=== PATIENT | female | born 1940 | race Caucasian/White ===

== ENCOUNTER → 2017-10-16 | Outpatient (CLI) | payer MEDICARE, OTHER ==
[2014-10-28 07:20] VITALS: BP 168/82
[~2017-10-16] MED LIST: ALBU18HF IH; AMLO5TAB2 PO; ASPI-482 PO; ATOR40TA59 PO; CARV12.52 PO; CHOL100013 PO; ESTR2TAB PO; EZET10TA18 PO; LEVO100T5 PO; METF10002 PO; OMEG1CAP2 PO; OMEP20CA5 PO; RAMI10CA PO; TRIA1TAB PO
--- NOTE | 2017-10-16 11:52 | RAD ---
DATE: 10/16/2017 EXAM: MAMMO DINA SCREENING BILATERAL HISTORY: Routine screening COMPARISON: 10/15/2016 This study was interpreted with the benefit of Computerized Aided Detection (CAD). The breast parenchyma is primarily fatty replaced. Breast parenchyma level density A. FINDINGS: 2-D and 3-D tomosynthesis imaging was performed in CC and MLO projections. There is an unchanged smooth nodule in the posterolateral aspect of the right breast which is probably an intramammary lymph node. There is a 4 mm nodule in the anterolateral aspect of the right breast best seen on CC dina image #14 which is also unchanged. No new or enlarging breast densities are seen. Benign type calcifications are again noted bilaterally. No suspicious microcalcifications have developed. IMPRESSION: Stable mammograms without evidence of malignancy. BI-RADS CATEGORY: 2 BENIGN FINDING(S) RECOMMENDED FOLLOW-UP: 12M 12 MONTH FOLLOW-UP PQRS compliance statement: Patient information was entered into a reminder system with a target due date for the next mammogram. Mammography is a sensitive method for finding small breast cancers, but it does not detect them all and is not a substitute for careful clinical examination. A negative mammogram does not negate a clinically suspicious finding and should not result in delay in biopsying a clinically suspicious abnormality. "Our facility is accredited by the [employer] Mammography [employer]."
== END | disposition home or self-care (01) ==
LOC: MAMMO 10:33
PROVIDERS: ATTEND Specialist
DX: Z12.31 Encounter for screening mammogram for malignant neoplasm of breast (principal); Z87.891 Personal history of nicotine dependence
CPT/HCPCS: 77063; G0202; 77067

== ENCOUNTER 2017-11-24 19:43 | Emergency (ER) | payer MEDICARE, OTHER ==
[~2017-11-24] VITALS: Ht 165.1 cm; Wt 88.5 kg
[2017-11-24] MEDS ORDERED: IV NORMAL SALINE 1,000ML 1,000 ML IV SCH (20:09)
[2017-11-24] MEDS ORDERED: ONDANSETRON PF 4 MG/2 ML VIAL. IV ONE (20:30)
[2017-11-24 20:51] LABS: BASO % 0 % (0-3); EOS # 0.1 x10^3/uL (0.0-0.7); EOS % 1 % (0-3); HEMATOCRIT 47.3 % (36.0-47.0); HEMOGLOBIN 16.1 g/dL (12.0-15.5); LYMPH # 1.2 x10^3/uL (1.0-4.8); LYMPH % 8 % (24-48); MEAN CORPUSCULAR HEMOGLOBIN 29 pg (25-35); MEAN CORPUSCULAR HGB CONC 34 g/dL (31-37); MEAN CORPUSCULAR VOLUME 85 fL (79-100); MONO # 1.1 x10^3/uL (0.0-1.1); MONO % 8 % (0-9); NEUT % 83 % (31-73); PLATELET COUNT 242 x10^3/uL (140-400); RED BLOOD COUNT 5.58 x10^6/uL (3.50-5.40); RED CELL DISTRIBUTION WIDTH 14.9 % (11.5-14.5); WHITE BLOOD COUNT 14.5 x10^3/uL (4.0-11.0)
[2017-11-24 21:04] LABS: ALBUMIN/GLOBULIN RATIO 1.1 (1.0-1.7); CALCIUM 9.1 mg/dL (8.5-10.1); CREATININE 0.9 mg/dL (0.6-1.0); TOTAL BILIRUBIN 0.7 mg/dL (0.2-1.0); TOTAL PROTEIN 7.8 g/dL (6.4-8.2)
[2017-11-24 21:05] LABS: POTASSIUM 4.2 mmol/L (3.5-5.1)
[2017-11-24 21:17] LABS: BILIRUBIN,URINE NEG (NEG); CLARITY,URINE HAZY; COLOR,URINE YELLOW; GLUCOSE,URINE NEG (NEG); NITRITE,URINE NEG (NEG); UROBILINOGEN,URINE 0.2 mg/dL (0.2 mg/dL)
[2017-11-24 21:18] LABS: AMORPHOUS SEDIMENT,UR PRESENT /HPF; BACTERIA,URINE FEW /HPF (0-FEW); HYALINE CASTS, URINE FEW /HPF; SQUAMOUS EPITHELIAL CELL,UR MOD /LPF
[2017-11-24 21:51] VITALS: BP 138/72
--- NOTE | 2017-11-24 22:01 | PHYS DOC ---
General Chief Complaint: NAUSEA/VOMITING/DIARRHEA Stated Complaint: N/V/D Time Seen by MD: 20:08 Source: patient Exam Limitations: no limitations Problems: History of Present Illness Initial Comments Patient is a 77-year-old female who comes in the ED complaining of nausea vomiting and diarrhea. Patient states that yesterday evening she developed some abdominal cramps and had several episodes of nonbloody emesis. She states that she had some nonspecific abdominal cramping last night with several episodes of nonbloody emesis, a few more nonbloody emesis earlier today at approximately 8 loose watery stools this afternoon. She's feeling weak with [place] and headache when standing denies any chest pain or shortness of breath. No focal abdominal pain complaints no travel or bad food exposure she's had some chills and sweats no measured fevers. ED vital signs are stable, on arrival Zofran normal saline bolus and screening labs initiated. Timing/Duration: 24 hours Severity: moderate Modifying Factors: worse with eating Associated Symptoms: nausea/vomiting, other Allergies: Coded Allergies: Sulfa (Sulfonamide Antibiotics) (Unverified Allergy, Intermediate, rash, 10/28/14) Past Medical History Medical History: other (COPD, diabetes, hypertension, [place]) Surgical History: angioplasty, cholecystectomy Social History Smoker: quit greater than 1 year Alcohol: none Drugs: none Review of Systems Constitutional: chills, denies diaphoresis, denies fever, malaise Respiratory: denies cough, denies shortness of breath Cardiovascular: denies chest pain, denies palpitations Gastrointestinal: see HPI Genitourinary: denies dysuria, denies frequency, denies hematuria Musculoskeletal: denies back pain, denies joint swelling, denies neck pain Psychiatric/Neurological: headache, denies numbness, denies paresthesia Physical Exam General Appearance: WD/WN, mild distress Ear, Nose, Throat: hearing grossly normal, normal ENT inspection, normal pharynx (dry membranes) Neck: non-tender, supple Respiratory: normal breath sounds, no respiratory distress Cardiovascular: normal peripheral pulses, regular rate, rhythm Gastrointestinal: soft (nondistended, generalized abdominal muscle tenderness without focality negative Mejia negative McBurney bowel sounds normal) Back: no CVA tenderness, no vertebral tenderness Skin: warm/dry (poor turgor) Orders, Labs, Meds WBCs 14.5, BUN/creatinine ratio 23, glucose 225, urinalysis with squamous epithelial contamination no leukocyte esterase or nitrites Patient reevaluated after Zofran and fluids she states she's feeling much better. She states that she's had no nausea and is very hungry she wants to go home so she can eat. She denies having had any loose stools since ED arrival. I discussed [id number] and prescription medications, oral hydration, dietary modifications, glucose monitoring, as well as signs and symptoms to monitor and urgent indications to return to the department. Her questions were answered to her satisfaction and she expressed agreement and understanding with treatment plan. She was sent home with Zofran ODT start pack. Departure Time of Disposition: 22:00 Disposition: 01 HOME, SELF-CARE Diagnosis: gastroenteritis, dehydration Condition: IMPROVED Patient Instructions: Dehydration, Adult, [id number], Viral Gastroenteritis, [id number] Additional Instructions: Please review the patient education materials given by ED staff. Clear liquids today, advance diet slowly tomorrow as tolerated. Aggressive hydration Consider [id number] probiotics or cultured yogurt. A Zofran ODT start pack was dispensed to you, take one every 6 hours as needed for nausea. Follow-up with your doctor in 2-3 days for recheck. Return to ED with new or changing symptoms. TORY BENITO DO Nov 24, 2017 22:01
[2017-11-24] MEDS ORDERED: ONDANSETRON 4MG ODT 4TABLET STARTPACK. PO ONE (22:15)
== END 2017-11-24 22:19 | disposition home or self-care (01) ==
LOC: ER 19:48
DX: K52.9 Noninfective gastroenteritis and colitis, unspecified (principal); E86.0 Dehydration; R51 Headache; E11.9 Type 2 diabetes mellitus without complications; I10 Essential (primary) hypertension; J44.9 Chronic obstructive pulmonary disease, unspecified; I25.2 Old myocardial infarction; Z90.49 Acquired absence of other specified parts of digestive tract; Z98.61 Coronary angioplasty status; Z87.891 Personal history of nicotine dependence; Z88.2 Allergy status to sulfonamides
CPT/HCPCS: 36415; 80053; 81001; 82550; 83690; 84484; 85025; 87086; 96361; 96374; 99284; J2405; Q0162; J7030

== ENCOUNTER 2018-04-30 04:49 | Emergency (ER) | payer MEDICARE, OTHER ==
[~2018-04-30] VITALS: Ht 167.6 cm; Wt 88.6 kg
[~2018-04-30 04:49] MED LIST changes: -METF10002 PO; +METF10003 PO
[2018-04-30 04:51] VITALS: BP 176/76
--- NOTE | 2018-04-30 04:57 | ED.ADGEN ---
Past History Past Medical History: Arthritis, Bronchitis, COPD, Diabetes, Hypertension, [place], Other Past Surgical History: Cholecystectomy, Other Alcohol Use: Rarely Drug Use: None Adult General Chief Complaint Chief Complaint " .. I have COPD... and I get bronchitis.. but I ve been thru. 2 courses of Z - pack but I am not better.. I have not smoke for over 10 yrs.. I just finished the last Z pack started Wed last week.." HPI HPI Patient is a 77 year old female who presents with above hx complaints and dyspnea. Pt. has had a productive cough and sore throat last week. Pt. has not been on prednisone recently, and avoid it use because of diabetes. Pt. has some chest pain just below Lt. scapular. Pain is reproduce with cough. Pt. denies travel or specific ill contacts. Pt. normally follow s with Dr. Baig and Dr. Arnold. Pt. has completed two course of Z-pack for her recent respiratory symptoms. Hx. of COPD, Chronic Bronchitis, DM, HTN and arthritis. Review of Systems Review of Systems Constitutional: Subjective fever or chills [] Eyes: Denies change in visual acuity, redness, or eye pain [] HENT: Hx of nasal congestion and recent sore throat [] Respiratory: Hx. cough & shortness of breath [] Cardiovascular: No additional information not addressed in HPI [] GI: Denies abdominal pain, nausea, vomiting, bloody stools or diarrhea [] : Denies dysuria or hematuria [] Musculoskeletal: Denies back pain or joint pain [] Integument: Denies rash or skin lesions [] Neurologic: Denies headache, focal weakness or sensory changes [] Endocrine: Denies polyuria or polydipsia [] All other systems were reviewed and found to be within normal limits, except as documented in this note. Family History Family History Non-contributory Current Medications Current Medications Current Medications Medications (Trade) Dose Ordered Sig/Tanya Start Time Stop Time Status Last Admin Dose Admin Albuterol/ Ipratropium (Duoneb) 3 ml 1X ONCE 04/30/18 05:00 04/30/18 05:15 DC 04/30/18 05:10 3 ML Aspirin (Children'S Aspirin) 81 mg 1X ONCE 04/30/18 05:15 04/30/18 05:16 DC 04/30/18 05:38 81 MG Ceftriaxone Sodium 1 gm/ Sodium Chloride 50 ml @ 100 mls/hr 1X ONCE 04/30/18 05:00 04/30/18 05:29 UNV Ceftriaxone Sodium (Rocephin) 1 gm ONCE ONCE 04/30/18 05:30 04/30/18 05:31 DC 04/30/18 05:30 1 GM Lactated Ringer's 1,000 ml @ 100 mls/hr Q10H 04/30/18 05:15 04/30/18 15:14 04/30/18 05:42 100 MLS/HR Levofloxacin (Levaquin) 500 mg 1X ONCE 04/30/18 05:15 04/30/18 05:16 DC 04/30/18 05:37 500 MG Methylprednisolone Sodium Succinate (SOLU-Medrol 125MG VIAL) 125 mg 1X ONCE 04/30/18 05:15 04/30/18 05:16 DC 04/30/18 05:26 125 MG Allergies Allergies Allergies Coded Allergies Type Severity Reaction Last Updated Verified Sulfa (Sulfonamide Antibiotics) Allergy Intermediate rash 10/28/14 No Physical Exam Physical Exam Constitutional: Moderately acute distress, non-toxic appearance. [] HENT: Normocephalic, atraumatic, bilateral external ears normal, oropharynx moist, no oral exudates, nose normal. [] Eyes: PERRLA, EOMI, conjunctiva normal, no discharge. [] Neck: Normal range of motion, no tenderness, supple, no stridor. [] Cardiovascular: Tachycardia:Heart rate regular rhythm, no murmur , Lungs & Thorax: Bilateral breath sounds equal apex with scattered wheeze auscultation []More wheezing on lt. Abdomen: Bowel sounds normal, soft, no tenderness, no masses, no pulsatile masses. []Obese. Skin: Warm, dry, no erythema, no rash. [] Back: No tenderness, no CVA tenderness. [] Extremities: No tenderness, no cyanosis, no clubbing, ROM intact, no edema. [] Neurologic: Alert and oriented X 3, normal motor function, normal sensory function, no focal deficits noted. [] Psychologic: Affect anxious, judgement normal, mood normal. [] Current Patient Data Lab Results Laboratory Tests Test 04/30/18 05:00 White Blood Count 7.1 x10^3/uL (4.0-11.0) Red Blood Count 5.06 x10^6/uL (3.50-5.40) Hemoglobin 14.5 g/dL (12.0-15.5) Hematocrit 43.2 % (36.0-47.0) Mean Corpuscular Volume 85 fL (79-100) Mean Corpuscular Hemoglobin 29 pg (25-35) Mean Corpuscular Hemoglobin Concent 34 g/dL (31-37) Red Cell Distribution Width 14.1 % (11.5-14.5) Platelet Count 216 x10^3/uL (140-400) Neutrophils (%) (Auto) 64 % (31-73) Lymphocytes (%) (Auto) 22 % (24-48) L Monocytes (%) (Auto) 11 % (0-9) H Eosinophils (%) (Auto) 2 % (0-3) Basophils (%) (Auto) 1 % (0-3) Neutrophils # (Auto) 4.5 x10^3uL (1.8-7.7) Lymphocytes # (Auto) 1.6 x10^3/uL (1.0-4.8) Monocytes # (Auto) 0.8 x10^3/uL (0.0-1.1) Eosinophils # (Auto) 0.1 x10^3/uL (0.0-0.7) Basophils # (Auto) 0.1 x10^3/uL (0.0-0.2) Prothrombin Time 9.7 SEC (9.4-11.4) Prothrombin Time INR 0.9 (0.9-1.1) PTT 28 SEC (23-33) D-Dimer (Adilia) 0.37 mg/L (0.00-0.50) Sodium Level 137 mmol/L (136-145) Potassium Level 4.1 mmol/L (3.5-5.1) Chloride Level 101 mmol/L (98-107) Carbon Dioxide Level 26 mmol/L (21-32) Anion Gap 10 (6-14) Blood Urea Nitrogen 13 mg/dL (7-20) Creatinine 0.7 mg/dL (0.6-1.0) Estimated GFR (Cockcroft-Gault) 81.6 Glucose Level 191 mg/dL (70-99) H Calcium Level 9.1 mg/dL (8.5-10.1) Magnesium Level 1.8 mg/dL (1.8-2.4) Total Bilirubin 0.4 mg/dL (0.2-1.0) Direct Bilirubin 0.1 mg/dL (0.0-0.2) Aspartate Amino Transferase (AST) 17 U/L (15-37) Alanine Aminotransferase (ALT) 33 U/L (14-59) Alkaline Phosphatase 66 U/L (46-116) Creatine Kinase 54 U/L (26-192) Creatine Kinase MB (Mass) 0.7 ng/mL (0.0-3.6) Creatine Kinase MB Relative Index 1.3 % (0-4) Troponin I Quantitative < 0.017 ng/mL (0-0.055) GQ-Jhw-G-Type Natriuretic Peptide 64 pg/mL (0-449) Total Protein 7.2 g/dL (6.4-8.2) Albumin 3.6 g/dL (3.4-5.0) EKG EKG [] Radiology/Procedures Radiology/Procedures My interpretation of CXR shows chronic changes. Some linear atelectasis. Prior surgery clips in abd. Similar to CXR of 11/30/2012 Course & Med Decision Making Course & Med Decision Making Pertinent Labs and Imaging studies reviewed. (See chart for details). Take Levaquin 500 day 5 days. Prednisone 50 mg daily for 5 days. If the treatments directed. Follow-up primary. Return if any concerns. [] Final Impression Final Impression 1.Dyspnea 2. COPD exacerbation[] 3. Bronchiectasis 4. Diabetes 5. Hypertension Dragon Disclaimer Dragon Disclaimer This electronic medical record was generated, in whole or in part, using a voice recognition dictation system. JOAQUINA JONES MD Apr 30, 2018 04:57
[2018-04-30] MEDS ORDERED: IPRATRPIUM/ALBUTEROL 0.5/2.5MG 3 ML NEBU. NEB ONE (05:00)
[2018-04-30] MEDS ORDERED: IV RINGERS SOLUTION,LACTATED 1,000 ML IV SCH (05:15)
[2018-04-30] MEDS ORDERED: methylPREDNISolone SOD SUCC PF 125 MG/2 ML VIAL. IV ONE (05:15)
[2018-04-30] MEDS ORDERED: ASPIRIN 81 MG TAB.CHEW PO ONE (05:15)
[2018-04-30] MEDS ORDERED: levoFLOXacin 500 MG TABLET PO ONE (05:15)
[2018-04-30 05:23] LABS: BASO # 0.1 x10^3/uL (0.0-0.2); BASO % 1 % (0-3); EOS # 0.1 x10^3/uL (0.0-0.7); EOS % 2 % (0-3); HEMATOCRIT 43.2 % (36.0-47.0); HEMOGLOBIN 14.5 g/dL (12.0-15.5); LYMPH # 1.6 x10^3/uL (1.0-4.8); LYMPH % 22 % (24-48); MEAN CORPUSCULAR HEMOGLOBIN 29 pg (25-35); MEAN CORPUSCULAR HGB CONC 34 g/dL (31-37); MEAN CORPUSCULAR VOLUME 85 fL (79-100); MONO # 0.8 x10^3/uL (0.0-1.1); MONO % 11 % (0-9); NEUT # 4.5 x10^3uL (1.8-7.7); NEUT % 64 % (31-73); PLATELET COUNT 216 x10^3/uL (140-400); RED BLOOD COUNT 5.06 x10^6/uL (3.50-5.40); RED CELL DISTRIBUTION WIDTH 14.1 % (11.5-14.5); WHITE BLOOD COUNT 7.1 x10^3/uL (4.0-11.0)
[2018-04-30] MEDS ORDERED: cefTRIAXone IV Push 1 GM VIAL. IVP ONE (05:30)
--- NOTE | 2018-04-30 05:33 | RAD ---
Chest PA and lateral: Reason for examination: Cough and wheezing with dyspnea. Comparison is made to previous study dated 11/30/2012. The heart size is normal. Mediastinum is unremarkable. Lung patricio show some linear density in the left lingula. No congestion, infiltrates or pleural effusions are seen. There continues to be small granuloma at the mid left lung field. No acute bony abnormalities are seen. Impression: Linear density probably reflecting atelectasis at the left lingula. Electronically signed by: Linda Mosquera MD (04/30/2018 5:30 AM) [place] [id number]
[2018-04-30 05:45] LABS: ALBUMIN 3.6 g/dL (3.4-5.0); CALCIUM 9.1 mg/dL (8.5-10.1); CREATININE 0.7 mg/dL (0.6-1.0); DIRECT BILIRUBIN 0.1 mg/dL (0.0-0.2); GFR 81.6; MAGNESIUM 1.8 mg/dL (1.8-2.4); POTASSIUM 4.1 mmol/L (3.5-5.1); TOTAL BILIRUBIN 0.4 mg/dL (0.2-1.0); TOTAL PROTEIN 7.2 g/dL (6.4-8.2)
[2018-04-30] MEDS ORDERED: PRED50TA PO (05:53)
[2018-04-30] MEDS ORDERED: LEVO500T59 PO (05:54)
--- NOTE | 2018-04-30 05:58 | EKG ---
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
== END 2018-04-30 06:18 | disposition home or self-care (01) ==
LOC: ER 04:49
DX: J44.1 Chronic obstructive pulmonary disease with (acute) exacerbation (principal); J47.9 Bronchiectasis, uncomplicated; E11.9 Type 2 diabetes mellitus without complications; I10 Essential (primary) hypertension; M19.90 Unspecified osteoarthritis, unspecified site; I25.2 Old myocardial infarction; Z88.2 Allergy status to sulfonamides
CPT/HCPCS: 36415; 71046; 80048; 80076; 82553; 83735; 83880; 84443; 84484; 85025; 85379; 85610; 85730; 87040; 93005; 94640; 96361; 96374; 96375; 99285; J0696; J2930; J7120; J7620

== ENCOUNTER → 2018-11-10 | Outpatient (CLI) | payer MEDICARE, OTHER ==
[~2018-11-10] MED LIST changes: -ALBU18HF IH; +ALBU2.5V8 IH; -AMLO5TAB2 PO; +AMLO5TAB7 PO; -CARV12.52 PO; +CARV12.547 PO; +LEVO500T59 PO; -METF10003 PO; +METF10007 PO; +PRED50TA PO; -RAMI10CA PO; +RAMI10CA53 PO
--- NOTE | 2018-11-11 09:52 | RAD ---
DATE: 11/10/2018 EXAM: MAMMO DINA SCREENING BILATERAL HISTORY: Routine screening COMPARISON: 10/16/2017 This study was interpreted with the benefit of Computerized Aided Detection (CAD). Breast Density: SCATTERED The breast parenchyma shows scattered fibroglandular densities. Breast parenchyma level B. FINDINGS: 2-D and 3-D tomosynthesis imaging was performed in CC and MLO projections. There is an unchanged small benign-appearing lymph node type density in the lateral aspect of the right breast. No new or enlarging breast densities are seen. Numerous benign type calcifications are again noted. No suspicious microcalcifications have developed. IMPRESSION: Stable mammograms without evidence of malignancy. BI-RADS CATEGORY: 2 BENIGN FINDING(S) RECOMMENDED FOLLOW-UP: 12M 12 MONTH FOLLOW-UP PQRS compliance statement: Patient information was entered into a reminder system with a target due date for the next mammogram. Mammography is a sensitive method for finding small breast cancers, but it does not detect them all and is not a substitute for careful clinical examination. A negative mammogram does not negate a clinically suspicious finding and should not result in delay in biopsying a clinically suspicious abnormality. "Our facility is accredited by the [employer] Mammography Program."
== END | disposition home or self-care (01) ==
LOC: MAMMO 12:55
PROVIDERS: ATTEND Specialist
DX: Z12.31 Encounter for screening mammogram for malignant neoplasm of breast (principal)
CPT/HCPCS: 77063; 77067

== ENCOUNTER → 2020-01-04 | Outpatient (CLI) | payer MEDICARE, OTHER ==
[~2020-01-04] MED LIST changes: +AMLO5TAB10 PO; -AMLO5TAB7 PO; -EZET10TA18 PO; +EZET10TA20 PO
--- NOTE | 2020-01-05 13:31 | RAD ---
History: Routine Screening. Technique: Bilateral digital mammographic routine views were obtained with 2-D and 3-D technique including use of CAD - computer aided detection. Comparison: 11/10/2018. Findings: Breast Tissue Density A : The breast tissue is predominately fatty replaced. There are no suspicious masses, microcalcifications or areas of architectural distortion. Impression: Negative mammogram. BI-RADS Category 1: Negative. Normal interval followup. . A mammogram does not have 100% sensitivity and therefore a negative imaging study should not delay further work up of a suspicious abnormality. The patient will receive a letter with the results in the mail. Patient information is entered into the reminder system with a target due date for the next screening mammogram. The patient will receive a reminder. "Our facility is accredited by the [employer] Mammography Program." BI-RADS 1 -- negative findings (within normal)
== END | disposition home or self-care (01) ==
LOC: MAMMO 09:41
PROVIDERS: ATTEND Specialist
DX: Z12.31 Encounter for screening mammogram for malignant neoplasm of breast (principal)
CPT/HCPCS: 77063; 77067

== ENCOUNTER → 2021-05-21 | Outpatient (CLI) | payer MEDICARE, OTHER ==
[~2021-05-21] MED LIST changes: +AMLO-186 PO; -AMLO5TAB10 PO
--- NOTE | 2021-05-23 11:05 | RAD ---
DATE: 05/21/2021 EXAM: MAMMO DINA SCREENING BILATERAL HISTORY: Screening COMPARISON: 01/04/2020, 11/10/2018, 10/15/2016 This study was interpreted with the benefit of Computerized Aided Detection (CAD). Breast Density: SCATTERED The breast parenchyma shows scattered fibroglandular densities. Breast parenchyma level B. FINDINGS: There is a 4 mm nodule in the medial right breast 3 cm posterior to the nipple, best seen on CC dina slice 38/62. There are scattered benign calcifications. No architectural distortion. IMPRESSION: 4 mm nodule in the medial right breast, 3 cm posterior to the nipple. This likely localizes to the inferior right breast on MLO view. Recommend spot compression CC and MLO views and possible ultrasound to further evaluate. BI-RADS CATEGORY: 0 INCOMPLETE: NEEDS ADDITIONAL IMAGING EVALUATION AND/OR PRIOR MAMMOGRAMS FOR COMPARISON. RECOMMENDED FOLLOW-UP: ADD ADDITIONAL IMAGING PQRS compliance statement: Patient information was entered into a reminder system with a target due date for the next mammogram. Mammography is a sensitive method for finding small breast cancers, but it does not detect them all and is not a substitute for careful clinical examination. A negative mammogram does not negate a clinically suspicious finding and should not result in delay in biopsying a clinically suspicious abnormality. "Our facility is accredited by the [employer] Mammography [employer]."
== END ==
LOC: MAMMO 10:42
PROVIDERS: ATTEND Specialist
DX: Z12.31 Encounter for screening mammogram for malignant neoplasm of breast (principal); N63.41 Unspecified lump in right breast, subareolar
CPT/HCPCS: 77063; 77067

== ENCOUNTER → 2021-06-04 | Outpatient (CLI) | payer MEDICARE, OTHER ==
--- NOTE | 2021-06-04 14:47 | RAD ---
EXAM: Right breast diagnostic mammogram; right breast sonogram. HISTORY: 80-year-old female presents for evaluation of nodularity within the right breast demonstrate d on a screening mammogram dated 05/21/2021. TECHNIQUE: Full-field digital true lateral and spot compression views of the right breast are obtaine d. Sonographic imaging of the right breast targeted to these sites of mammographic nodularity was als o performed. COMPARISON: 05/21/2021 and 01/04/2020 BREAST PARENCHYMAL DENSITY: Level B - Scattered fibroglandular densities. FINDINGS: There is persistent nodularity within the 3:00 position of the right breast with additional mammographic views. There is no architectural distortion. There are multiple benign calcifications. Right breast demonstrates adjacent 3 mm and 4 mm hypoechoic lesions with internal echoes at the 3:00 position 3.0 cm and 3.5 cm from the nipple. There is a third similar-appearing 3 mm hypoechoic lesion at the 3:00 position 5 cm from the nipple measuring 3 mm. These account for areas of mammographic no dularity. The appearance and multiplicity favors benign fibrocystic lesions. IMPRESSION: 1. Persistent nodularity within the anterior 3:00 position of the right breast, corresponding with ti ny suspected benign fibrocystic lesions demonstrated sonographically. 2. BI-RADS Category 3: Probably benign finding(s). Short term follow up with a right breast sonogram in 6 months is recommended to confirm stability. If your mammogram demonstrates that you have dense breast tissue, which could hide abnormalities, and if you have other risk factors for breast cancer that have been identified, you might benefit from s upplemental screening tests that may be suggested by your ordering physician. Dense breast tissue, i n and of itself, is a relatively common condition. This information is not provided to cause undue c oncern, but rather to raise your awareness and to promote discussion with your physician regarding th e presence of other risk factors, in addition to dense breast tissue. A report of your mammography re sults will be sent to you and your physician. You should contact your physician if you have any ques tions or concerns regarding this report. Mammography is a sensitive method for finding small breast cancers, but it does not detect them all a nd is not a substitute for careful clinical examination. A negative mammogram does not negate a clin ically suspicious finding and should not result in delay in biopsying a clinically suspicious abnorma lity. PQRS compliance statement - Patient information was entered into a reminder system with a target due date for the next mammogram. "Our facility is accredited by the [employer] Mammography [employer]." Electronically signed by: Rehana Mantilla MD (06/04/2021 2:45 PM) [id number]
== END ==
LOC: MAMMO 13:29
PROVIDERS: ATTEND Specialist
DX: R92.2 Inconclusive mammogram (principal); N64.89 Other specified disorders of breast
CPT/HCPCS: 76641; 77065

== ENCOUNTER → 2021-12-11 | Outpatient (CLI) | payer MEDICARE, OTHER ==
[~2021-12-11] MED LIST changes: -ESTR2TAB PO; +ESTR2TAB3 PO
--- NOTE | 2021-12-11 13:18 | RAD ---
EXAM: Right breast sonogram. HISTORY: 81-year-old female presents for follow-up evaluation of findings within the right breast dem onstrated on a sonogram dated 06/04/2021. TECHNIQUE: Sonographic imaging of the right breast targeted to sites of prior findings was performed. COMPARISON: 06/04/2021. FINDINGS: There has been no significant change in approximately 2 mm complicated cysts at the 3:00 po sition 3 cm from the nipple and 3.5 cm from the nipple. There is a third tiny similar-appearing lesio n in this location which is difficult to characterize given its size. There is no new suspicious sono graphic finding. IMPRESSION: 1. Stable tiny benign complicated cysts at 3:00 position. No new suspicious sonographic finding. 2. BI-RADS Category 2: Benign finding(s). The patient will be due for bilateral mammography in 5 jake hs according to a previously established mammography interval. Electronically signed by: Rehana Mantilla MD (12/11/2021 1:16 PM) [id number]
== END ==
LOC: US 12:31
PROVIDERS: ATTEND Specialist
DX: N60.01 Solitary cyst of right breast (principal)
CPT/HCPCS: 76642